=== PATIENT | female | born 1995 | race Hispanic/Latino ===

== ENCOUNTER 2018-03-31 01:28 | Emergency (ER) | payer OTHER | END 2018-03-31 01:35 | disposition short-term general hospital (02) | LOC: ER 01:28 | DX: R10.9 Unspecified abdominal pain (principal) ==

== ENCOUNTER 2025-03-10 22:35 | Inpatient (IN) | payer OTHER ==
[~2025-03-10] VITALS: Ht 154.9 cm; Wt 71.2 kg
[2025-03-10] MEDS: SODIUM CHLORIDE 0.9% 1000ML 1,000 ML IV STA (22:56)
[2025-03-10] MEDS: MAGNESIUM/ALUMINUM/SIMETHICONE 30 ML UDC PO STA (22:56)
[2025-03-10] MEDS: BELLADONNA ALK/PHENOBARBITAL 5 ML UDC PO ONE (22:56)
[2025-03-10] MEDS: LIDOCAINE VISC 2% SOLN 15 ML UDC PO STA (22:56)
[2025-03-10] MEDS: ONDANSETRON HCL INJ 2MG/ML 2ML 2 MG/ML VIAL IV STA (23:13)
[2025-03-10 23:32] LABS: BASOPHILS % 0.4 % (0.0-1.0); EOSINOPHILS # (AUTO) 0.2 (0.0-0.4); EOSINOPHILS % 1.6 % (0.0-6.0); HEMATOCRIT 41.5 % (34.2-44.1); HEMOGLOBIN 13.9 g/dL (12.0-16.0); LYMPHOCYTES % 36.4 % (18.0-39.1); MEAN CORPUSCULAR HEMOGLOBIN 30.2 pg (28-32); MEAN CORPUSCULAR HGB CONC 33.5 g/dL (31-35); MONOCYTES # (AUTO) 0.9 (0.2-0.8); MONOCYTES % 8.7 % (4.4-11.3); NEUTROPHILS # (AUTO) 5.7 (2.1-6.9); NEUTROPHILS % 52.5 % (38.7-80.0); PLATELET COUNT 369 x10e3/uL (140-360); RED BLOOD COUNT 4.61 x10e6/uL (3.6-5.1); RED CELL DISTRIBUTION WIDTH 12.3 % (11.7-14.4); WHITE BLOOD COUNT 10.84 x10e3/uL (4.8-10.8)
[2025-03-10 23:35] LABS: BILIRUBIN,URINE NEGATIVE (NEGATIVE); CLARITY,URINE SL CLOUDY (CLEAR); COLOR,URINE YELLOW (YELLOW); GLUCOSE, URINE NEGATIVE (NEGATIVE); KETONES,URINE NEGATIVE (NEGATIVE); LEUKOCYTE ESTERASE ,URINE NEGATIVE (NEGATIVE); NITRITE,URINE NEGATIVE (NEGATIVE); PH,URINE 7 (5 - 7); PREGNANCY TEST, URINE NEGATIVE (NEGATIVE); PROTEIN,URINE DIPSTICK NEGATIVE (NEGATIVE); URINE UROBILINOGEN 1 mg/dL (0.2 - 1)
[2025-03-10 23:46] LABS: ALBUMIN 3.8 g/dL (3.5-5.0); ALBUMIN/GLOBULIN RATIO 0.9 (0.8-2.0); ANION GAP 15.8 mmol/L (8-16); BILIRUBIN,TOTAL 0.3 mg/dL (0.2-1.2); CALCIUM 9.9 mg/dL (8.4-10.2); CREATININE, SERUM 0.8 mg/dL (0.57-1.11); POTASSIUM 3.8 mmol/L (3.5-5.1)
[2025-03-10 23:51] LABS: BACTERIA,URINE MANY /HPF; EPITHELIAL CELLS,URINE MODERATE /LPF; WBC,URINE (MAN) 21-50 /HPF (0-5)
[2025-03-10 23:52] LABS: HYALINE CASTS 0-1 (0-1)
[2025-03-11] MEDS ORDERED: IOPAMIDOL 370 MG/ML 100 ML INFUS..BTL INJ ONE (00:57)
[2025-03-11] MEDS ORDERED: ONDANSETRON HCL INJ 2MG/ML 2ML 2 MG/ML VIAL IV PRN (01:15)
[2025-03-11] MEDS: SODIUM CHLORIDE 0.9% 1000ML 1,000 ML IV SCH (02:02)
[2025-03-11 06:38] VITALS: TEMP 98.3
[2025-03-11 10:03] VITALS: PULSE 79; RESP 16
[2025-03-11 11:00] VITALS: BP 114/77; PULSE 77; RESP 18; TEMP 98.1; O2SAT 100
[2025-03-11 16:00] VITALS: BP 110/70; PULSE 72; RESP 17; TEMP 98; O2SAT 100
[2025-03-11 20:00] VITALS: BP 116/65; PULSE 80; RESP 17; TEMP 98; O2SAT 100
[2025-03-12] VITALS (7 sets, daily range): BP systolic 98–125; BP diastolic 58–89; PULSE 62–84; RESP 17–18; TEMP 97.4–99.2; O2SAT 97–100
[2025-03-12 05:28] LABS: BASOPHILS % 0.7 % (0.0-1.0); EOSINOPHILS # (AUTO) 0.3 (0.0-0.4); EOSINOPHILS % 4.2 % (0.0-6.0); HEMOGLOBIN 12.5 g/dL (12.0-16.0); LYMPHOCYTES # (AUTO) 2.5 (1.0-3.2); LYMPHOCYTES % 42.5 % (18.0-39.1); MEAN CORPUSCULAR HEMOGLOBIN 30.5 pg (28-32); MEAN CORPUSCULAR HGB CONC 32.9 g/dL (31-35); MEAN CORPUSCULAR VOLUME 92.7 fL (81-99); MONOCYTES # (AUTO) 0.4 (0.2-0.8); MONOCYTES % 7.4 % (4.4-11.3); NEUTROPHILS # (AUTO) 2.7 (2.1-6.9); NEUTROPHILS % 44.7 % (38.7-80.0); PLATELET COUNT 321 x10e3/uL (140-360); RED CELL DISTRIBUTION WIDTH 12.4 % (11.7-14.4); WHITE BLOOD COUNT 5.93 x10e3/uL (4.8-10.8)
[2025-03-12 05:58] LABS: ALBUMIN 3.2 g/dL (3.5-5.0); ALBUMIN/GLOBULIN RATIO 0.9 (0.8-2.0); ANION GAP 14.9 mmol/L (8-16); BILIRUBIN,TOTAL 0.7 mg/dL (0.2-1.2); CALCIUM 8.7 mg/dL (8.4-10.2); CREATININE, SERUM 0.78 mg/dL (0.57-1.11); POTASSIUM 3.9 mmol/L (3.5-5.1); TOTAL PROTEIN 6.6 g/dL (6.5-8.1)
[2025-03-12] MEDS ORDERED: PROPOFOL IV EMULSION 10 MG/ML 20 ML VIAL ONE (06:53)
[2025-03-12] MEDS ORDERED: FENTANYL CITRATE/PF 100MCG/2 ML INJ ONE (06:53)
[2025-03-12] MEDS ORDERED: MIDAZOLAM HCL 2 MG/2 ML VIAL ONE (06:53)
[2025-03-12] MEDS ORDERED: ROCURONIUM BROMIDE 1 ML IV ONE (06:53)
[2025-03-12] MEDS ORDERED: LIDOCAINE HCL 2% LOCAL INJ 5 ML SDV VIAL INJ ONE (06:58)
[2025-03-12] MEDS ORDERED: DEXAMETHASONE SOD PHOS INJ 4 MG/ML SDV ONE (06:58)
[2025-03-12] MEDS ORDERED: ONDANSETRON HCL INJ 2MG/ML 2ML 2 MG/ML VIAL ONE (06:58)
[2025-03-12] MEDS ORDERED: ACETAMINOPHEN 1000 MG/100 ML 100 ML IV ONE (07:28)
[2025-03-12] MEDS ORDERED: SUGAMMADEX SODIUM 200 MG/2 ML VIAL IV ONE (08:12)
[2025-03-12] MEDS: FENTANYL CITRATE/PF 100MCG/2 ML INJ ONE (08:55)
[2025-03-12] MEDS: Morphine 4mg INJECTION 4 MG/ML INJ IV PRN (11:26)
[2025-03-12] MEDS: ONDANSETRON HCL INJ 2MG/ML 2ML 2 MG/ML VIAL IV PRN (12:00)
[2025-03-12] MEDS: SODIUM CHLORIDE 0.9% 1000ML 1,000 ML IV SCH (13:53)
[2025-03-12] MEDS: HYDROCODONE/APAP 5MG-325MG TAB PO PRN (20:13)
[2025-03-13 03:30] VITALS: BP 98/73; PULSE 90; RESP 17; TEMP 98.4; O2SAT 96
[2025-03-13 05:37] LABS: BASOPHILS % 0.2 % (0.0-1.0); EOSINOPHILS % 0.3 % (0.0-6.0); HEMATOCRIT 36.6 % (34.2-44.1); HEMOGLOBIN 11.9 g/dL (12.0-16.0); LYMPHOCYTES # (AUTO) 2.3 (1.0-3.2); LYMPHOCYTES % 24.8 % (18.0-39.1); MEAN CORPUSCULAR HEMOGLOBIN 30.1 pg (28-32); MEAN CORPUSCULAR HGB CONC 32.5 g/dL (31-35); MEAN CORPUSCULAR VOLUME 92.7 fL (81-99); MONOCYTES # (AUTO) 0.7 (0.2-0.8); MONOCYTES % 7.4 % (4.4-11.3); NEUTROPHILS # (AUTO) 6.1 (2.1-6.9); NEUTROPHILS % 67.1 % (38.7-80.0); PLATELET COUNT 315 x10e3/uL (140-360); RED BLOOD COUNT 3.95 x10e6/uL (3.6-5.1); RED CELL DISTRIBUTION WIDTH 12.3 % (11.7-14.4); WHITE BLOOD COUNT 9.07 x10e3/uL (4.8-10.8)
[2025-03-13 06:11] LABS: ALBUMIN 3.2 g/dL (3.5-5.0); ALBUMIN/GLOBULIN RATIO 0.9 (0.8-2.0); ANION GAP 12.9 mmol/L (8-16); BILIRUBIN,TOTAL 1.7 mg/dL (0.2-1.2); CALCIUM 8.9 mg/dL (8.4-10.2); CREATININE, SERUM 0.72 mg/dL (0.57-1.11); POTASSIUM 3.9 mmol/L (3.5-5.1); TOTAL PROTEIN 6.6 g/dL (6.5-8.1)
[2025-03-13 08:00] VITALS: BP 107/65; PULSE 78; RESP 17; TEMP 98.1; O2SAT 100
[2025-03-13 08:30] VITALS: BP 107/65; PULSE 78; RESP 17; TEMP 98.1; O2SAT 100
[2025-03-13 12:00] VITALS: BP 112/60; PULSE 92; RESP 17; TEMP 98.7; O2SAT 100
[2025-03-14 16:25] LABS: GLIADIN AB IGA 2 units (0-19)
[2025-03-15 13:12] LABS: ENDOMYSIAL ANTIBODIES, IGA Negative (Negative)
[2025-03-15 14:08] LABS: IMMUNOGLOBULIN A 402 mg/dL (87-352); TISSUE TRANSGLUTAMINASE IGA AB <2 U/mL (0-3)
== END 2025-03-13 13:57 | disposition home or self-care (01) | DRG 418 ==
LOC: ER 22:41 → ERHOLD 03-11 01:11 → MED/SURG 03-11 10:59
PROVIDERS: ADMIT Internal Medicine; ATTEND Internal Medicine
PROC: 0FT44ZZ Resection of Gallbladder, Percutaneous Endoscopic Approach (ICD-10-PCS; principal; 2025-03-12 07:26)
DX: K80.36 Calculus of bile duct with acute and chronic cholangitis without obstruction (principal); N39.0 Urinary tract infection, site not specified; R74.8 Abnormal levels of other serum enzymes; K58.9 Irritable bowel syndrome, unspecified
CPT/HCPCS: 36415; 74177; 76705; 80053; 81001; 81025; 82784; 83516; 83690; 85025; 86256; 87086; 87186; 88304; 99284; J1100; J2003; J2250; J2270; J2405; J2543; J7030; Q9967